=== PATIENT | male | born 1955 | race Caucasian/White ===

== ENCOUNTER 2017-12-20 08:56 | Outpatient (CLI) | payer BC ==
--- NOTE | 2017-12-20 09:34 | XRAY Report ---
Reason: BRONCHITIS,ACUTE W OR W/O BRONCHOSPASM Procedure Date: 12/20/2017 Accession Number: [id number] / [id number] Procedure: XR - Chest 2 View X-Ray CPT Code: 14161 FULL RESULT: EXAM: CHEST RADIOGRAPHY EXAM DATE: 12/20/2017 09:14 AM. CLINICAL HISTORY: Bronchitis, acute W OR W/O BRONCHOSPASM. COMPARISON: None. TECHNIQUE: 2 views. FINDINGS: Lungs/Pleura: No focal opacities evident. No pleural effusion. No pneumothorax. Normal volumes. Mediastinum: Heart and mediastinal contours are unremarkable. Upper abdominal clips are noted. IMPRESSION: No evidence of acute thoracic process RADIA
== END 2017-12-20 08:57 | disposition home or self-care (01) ==
LOC: DI 08:56
PROVIDERS: ATTEND Registered Nurse
DX: J20.9 Acute bronchitis, unspecified (principal)
CPT/HCPCS: 71046

== ENCOUNTER 2021-11-11 08:00 | Outpatient (CLI) | payer BC, MEDICARE | END 2021-11-11 23:59 | disposition home or self-care (01) | LOC: LAB.S 08:00 | PROVIDERS: ATTEND Physician Assistant Medical | DX: M70.52 Other bursitis of knee, left knee (principal) | CPT/HCPCS: 87070; 87205 ==

== ENCOUNTER 2022-02-15 13:56 | Outpatient (CLI) | payer MEDICARE ==
--- NOTE | 2022-02-15 22:33 | XRAY Report ---
PROCEDURE: Knee 4 View LT INDICATIONS: LEFT KNEE PAIN TECHNIQUE: 4 views of the left knee(s) were acquired. COMPARISON: None. FINDINGS: Mild femorotibial and patellofemoral joint space narrowing with small marginal osteophytes. No suspic ious lytic or blastic osseous lesion. No knee joint effusion. Normal patellar height and position. Re gional soft tissues are normal. IMPRESSION: Mild tricompartmental osteoarthritis. Reviewed by: Jayden Samuel MD on 02/15/2022 10:32 PM PST Approved by: Jayden Samuel MD on 02/15/2022 10:32 PM PST Station ID: [id number]
== END 2022-02-15 13:57 | disposition home or self-care (01) ==
LOC: DI.WOS 13:56
PROVIDERS: ATTEND Physician Assistant Surgical
DX: M17.12 Unilateral primary osteoarthritis, left knee (principal)

== ENCOUNTER 2022-03-09 08:45 | Outpatient (CLI) | payer MEDICARE ==
[2022-03-09 09:05] LABS: BASOPHILS % (AUTO) 0.7 %; EOSINOPHILS # (AUTO) 0.2 10^3/uL (0.0-0.7); EOSINOPHILS % (AUTO) 3.5 %; HCT - HEMATOCRIT 45.6 % (42.0-52.0); HGB - HEMOGLOBIN 14.9 g/dL (14.0-18.0); LYMPHOCYTES % (AUTO) 17.1 %; MEAN CORPUSCULAR HEMOGLOBIN 31.1 pg (27.0-31.0); MEAN CORPUSCULAR HGB CONC 32.7 g/dL (32.0-36.0); MEAN CORPUSCULAR VOLUME 95.2 fL (80.0-94.0); MEAN PLATELET VOLUME 9.9 fL (7.4-11.4); MONOCYTES # (AUTO) 0.3 10^3/uL (0.0-1.0); MONOCYTES % (AUTO) 4.9 %; NEUTROPHILS # (AUTO) 4.4 10^3/uL (1.5-6.6); NEUTROPHILS % (AUTO) 73.5 %; PLT - PLATELET COUNT 164 10^3/uL (130-450); RED BLOOD COUNT 4.79 10^6/uL (4.70-6.10); RED CELL DISTRIBUTION WIDTH 12.8 % (12.0-15.0); WHITE BLOOD COUNT 5.9 x10^3/uL (4.8-10.8)
== END 2022-03-09 08:46 | disposition home or self-care (01) ==
LOC: LAB 08:45
PROVIDERS: ATTEND Physician Assistant Surgical
DX: M70.50 Other bursitis of knee, unspecified knee (principal)
CPT/HCPCS: 36415; 85025

== ENCOUNTER 2022-06-02 07:50 | Outpatient (CLI) | payer MEDICARE ==
[~2022-06-02 07:50] MED LIST: GADOBUTROL 10 MMOL/10 ML VIAL ONE
[2022-06-02 08:23] LABS: CREATININE 0.9 mg/dL (0.6-1.2)
[2022-06-02] MEDS ORDERED: GADOBUTROL 10 MMOL/10 ML VIAL IVP ONE (10:16)
--- NOTE | 2022-06-02 13:59 | MRI Report ---
PROCEDURE: KNEE W/WO - LT INDICATIONS: TIBIAL MASS, CELLULITIS OF LEFT KNEE CONTRAST: GADAVIST 9.8 TECHNIQUE: Noncontrast sagittal PD fast spin echo and T2 fast spin echo with fat saturation, sagittal 3-D spoile d GE with fat saturation; coronal T1 spin echo and PD fast spin echo with fat saturation, and axial T 1 spin echo and PD fast spin echo with fat saturation through the knee. Post-contrast axial, coronal , and sagittal T1 spin echo with fat saturation through the knee. COMPARISON: None. FINDINGS: Image quality: Excellent. Menisci: Peripheral displacement of medial meniscus is seen with complex oblique tear involving body and posterior horn of medial meniscus extending to both superior and inferior articulating surfaces. The lateral meniscus is intact. The meniscal root ligaments appear intact. Cruciate ligaments: The anterior and posterior cruciate ligaments appear intact. Medial structures: The medial collateral ligament appears mildly thickened. The posterior oblique l igament, semimembranosus tendon insertions, and oblique popliteal ligament, and meniscocapsular junct ion appear intact. Visualized portions of the pes anserinus tendons appear normal. No abnormal burs al fluid. Lateral structures: The lateral collateral ligament, long and short heads of the biceps femoris tend on appear intact. The popliteus tendon appears normal; the popliteofibular ligament appears intact. Iliotibial band appears normal. Anterior structures: Lobulated and fairly homogeneously T2 hyperintense and T1 hypointense structure is seen in soft tissue along anterior aspect of mid to distal patellar tendon and measures up to 3.5 x 1.9 x 4.1 cm in size. After IV contrast infusion, and no enhancement is noted within this structur e. The quadriceps and patellar tendons appear intact. Patellar alignment is normal. No femoral troc hlear dysplasia or ventral trochlear prominence. No edema in the infrapatellar fat pad. Bones and cartilage: No suspicious osseous enhancement. No bone marrow contusions or fractures. Mil d to moderate tricompartment osteoarthritis and chondromalacia is seen most notably in medial femoral tibial compartment and lateral portion of patella femoral compartment. Joint space: There is small to moderate knee joint fluid. No Valencia's cyst. Normal appearing synovi al plicae are incidentally noted. No suspicious soft tissue enhancement. IMPRESSION: 1. 3.5 x 1.9 x 4.1 cm lobulated cystic structure in anterior left knee soft tissue anterior to the mi d to distal patellar tendon and tibial tuberosity likely represent a ganglion cyst. No contrast enhan cement is noted within this structure. No enhancing soft tissue mass is seen. 2. Suggestion of complex tear involving body and posterior horn of medial meniscus extending to both superior and inferior articulating surfaces. Lateral meniscus is intact. 3. Distal quadriceps tendon and patella tendon are intact. 4. The cruciate ligaments are intact. Low-grade MCL sprain. 5. Mild to moderate tricompartmental osteoarthritis and chondromalacia as above. No fracture or dislo cation. Small to moderate joint effusion, no gross loose bodies. Reviewed by: Amandeep Villafuerte MD on 06/02/2022 1:57 PM PDT Approved by: Amandeep Villafuerte MD on 06/02/2022 1:57 PM PDT Station ID: [id number]
== END 2022-06-02 07:51 | disposition home or self-care (01) ==
LOC: LAB 07:50
PROVIDERS: ATTEND Registered Nurse
DX: M70.52 Other bursitis of knee, left knee (principal); L03.116 Cellulitis of left lower limb; S83.412A Sprain of medial collateral ligament of left knee, initial encounter; M17.12 Unilateral primary osteoarthritis, left knee; M25.462 Effusion, left knee
CPT/HCPCS: 36415; 73723; 82565; A9585

== ENCOUNTER 2023-05-04 10:33 | Day surgery (SDC) | payer MEDICARE ==
[2023-05-04] MEDS: LACTATED RINGERS 1,000 ML IV ONE ×2 (10:55→15:01)
[2023-05-04] MEDS ORDERED: PROPOFOL 200 MG/20 ML VIAL IVP ONE (10:57)
[2023-05-04] MEDS ORDERED: fentaNYL 100 MCG/2 ML VIAL ONE ×3 (10:57→14:02)
[2023-05-04] MEDS ORDERED: MIDAZOLAM 2 MG/2 ML VIAL ONE (10:58)
[2023-05-04] MEDS ORDERED: ceFAZolin 2 GM VIAL ONE (11:28)
--- NOTE | 2023-05-04 11:41 | ANESTHESIA ---
Pre-Anesthesia VS, & Labs - Diagnosis LEFT INGUINAL HERNIA - Procedure LIH REPAIR, OPEN Vital Signs: Temp Pulse Resp BP Pulse Ox O2 Flow Rate 36.1 C L 70 18 158/92 H 97 05/04/23 10:55 05/04/23 10:55 05/04/23 10:55 05/04/23 10:55 05/04/23 10:55 Height: 6 ft 1 in Weight (kg): 97 kg Body Mass Index: 28.2 BMI Classification: Overweight - NPO >8 hours Home Medications and Allergies Home Medications: Ambulatory Orders Amitriptyline [Elavil] 10 mg PO HS 04/27/23 Gabapentin [Neurontin] 300 mg PO TID 04/27/23 Amitriptyline [Elavil] 10 mg PO HS 04/27/23 Gabapentin [Neurontin] 300 mg PO TID 04/27/23 Allergies/Adverse Reactions: Allergies Allergy/AdvReac Type Severity Reaction Status Date / Time codeine Allergy Intermediate Itching Verified 04/27/23 14:14 Anes History & Medical History - Anesthetic History Anesthesia Complications: reports: No previous complications Family history of Anesthesia Complications: Denies Family history of Malignant Hyperthermia: Denies - Medical History Cardiovascular: reports: None (DENIES, [place], CP, SOB) Pulmonary: reports: None Gastrointestinal: reports: None Urinary: reports: None Neuro: reports: None Musculoskeletal: reports: None Endocrine/Autoimmune: reports: None Skin: reports: None Smoking Status: Former smoker Psychosocial: reports: No issues indicated - Surgical History General: reports: Cholecystectomy, Colonoscopy Eyes Ears Nose Throat (EENT): reports: Tonsil/Adenoidectomy Results - EKG Results EKG Comparison: Reviewed EKG Exam General: Alert Dental: WNL Mouth Openin Fingerbreadth Neck Mobility: Normal Mallampati classification: II Plan Anesthesia Type: General Consent for Procedure(s) Verified and Reviewed: Yes Code Status: Attempt Resuscitation ASA classification: 2-Mild systemic disease Is this case an emergency?: No
[2023-05-04] MEDS ORDERED: NALOXONE 0.4 MG/ML VIAL IVP PRN (11:43)
[2023-05-04] MEDS ORDERED: ATROPINE ABBOJECT 1 MG/10 ML SYRINGE IVP PRN (11:43)
[2023-05-04] MEDS ORDERED: ONDANSETRON 4 MG/2 ML VIAL IVP PRN (11:43)
[2023-05-04] MEDS ORDERED: MORPHINE 2 MG/ML CARPUJECT IVP PRN (11:43)
[2023-05-04] MEDS ORDERED: HYDROmorphone 0.5 MG/0.5 ML SYRINGE IVP PRN ×2 (11:43→15:07)
[2023-05-04] MEDS ORDERED: fentaNYL 100 MCG/2 ML VIAL IVP PRN (11:43)
[2023-05-04] MEDS ORDERED: METOCLOPRAMIDE 10 MG/2 ML VIAL IVP PRN (11:43)
[2023-05-04] MEDS ORDERED: ePHEDrine 50 MG/ML VIAL IVP PRN (11:43)
[2023-05-04] MEDS ORDERED: LACTATED RINGERS 1,000 ML IV SCH (12:00)
--- NOTE | 2023-05-04 12:05 | HISTORY & PHYSICAL EXAMINATION ---
Chief Complaint - Chief Complaint Chief Complaint: left inguinal hernia and right groin skin lesion History of Present Illness - History Obtained From Records Reviewed: yes History obtained from: pt Exam Limitations: none - History of Present Illness HPI Comment/Other: large painful left inguinal hernia and chronic skin lesion right groin History - Past Medical History Cardiovascular: reports: None (DENIES, [place], CP, SOB) Respiratory: reports: None Neuro: reports: None Endocrine/Autoimmune: reports: None GI: reports: None [employer]: reports: None : reports: None Musculoskeletal: reports: None Derm: reports: None MRSA Hx?: No - Past Surgical History General: reports: Cholecystectomy, Colonoscopy HEENT: reports: Tonsil/Adenoidectomy Meds/Allgy - Home Medications Home Medications: Ambulatory Orders Medication Instructions Recorded Confirmed Amitriptyline [Elavil] 10 mg PO HS 04/27/23 04/27/23 Gabapentin [Neurontin] 300 mg PO TID 04/27/23 04/27/23 - Allergies Allergies/Adverse Reactions: Allergies Allergy/AdvReac Type Severity Reaction Status Date / Time codeine Allergy Intermediate Itching Verified 04/27/23 14:14 Review of Systems - Other Findings Other Findings: 10 pt ros as above otherwise unremarkable Exam - Vital Signs Vital Signs: Vital Signs x48h Temp Pulse Resp BP Pulse Ox 05/04/23 10:55 36.1 C L 70 18 158/92 H 97 - Physical Exam General Appearance: positive: No acute distress, Alert Eyes Bilateral: positive: PERRL, EOMI ENT: positive: No signs of dehydration Neck: positive: No JVD, Trachea midline Respiratory: positive: No respiratory distress Cardiovascular: positive: Regular rate & rhythm Abdomen: positive: Non-tender, No distention, Other (left inguinal hernia and right groin skin lesion) Conclusion/Plan - Problem List (1) Inguinal hernia of left side without obstruction or gangrene Conclusion/Plan: large hernia. plan open repair with mesh plan excision right groin skin lesion. parq held and consent obtained
[2023-05-04] MEDS ORDERED: BUPIVACAINE 0.25% PF 30 ML VIAL ONE (12:19)
[2023-05-04] MEDS ORDERED: ONDANSETRON 4 MG/2 ML VIAL ONE (13:06)
[2023-05-04] MEDS ORDERED: DEXAMETHASONE 4 MG/ML VIAL ONE (13:06)
[2023-05-04] MEDS: BUPIVACAINE 0.25% PF 30 ML VIAL SUBQ ONE (13:23)
[2023-05-04] MEDS ORDERED: KETAMINE 200 MG/20 ML VIAL ONE (13:50)
[2023-05-04] MEDS ORDERED: ACETAMINOPHEN 1,000 MG/100 ML 1,000 MG/100 ML BAG IV ONE (13:53)
[2023-05-04] MEDS ORDERED: HYDROcod/ACETAM 5/325 MG TABLET PO PRN (15:07)
--- NOTE | 2023-05-04 15:13 | OPERATIVE REPORT ---
Operative Report - General Procedure Date: 05/04/23 Planned Procedure: open left inguinal hernia repair and excision right groin skin lesion Pre-Op Diagnosis: large left inguinal hernia and 1.5 cm right groin skin lesion Procedure Performed: open repair large direct inguinal hernia and excision 2.5 cm right groin skin lesion with 3 cm intermediate repair Post Op Diagnosis: same - Procedure Note Primary Surgeon: ting nunez Anesthesia Technique: General LMA, Local Pathology: skin lesion right groin Urine Output (mL): 2 Drain/Tube Type: Other (none) Indications: painful large hernia and bleeding skin lesion Findings: as above. benign appearing skin lesion. very large direct defect cepalad of the internal ring Complications: none - Other Other Information/Narrative: Patient was properly identified brought to the operating room and placed in supine position. Sequential compression devices were placed. General endotracheal anesthesia was induced. He was prepped and draped in a sterile fashion and given preoperative antibiotics. Local anesthetic was given throughout the procedure. A 5 cm incision was made in the direction of Dontae's lines just cephalad of the pubic tubercle. Dissection proceeded with cutting current cautery. The superficial epigastric vein was identified clamped divided and tied with 3-0 Vicryl. Dissection proceeded down to the aponeurosis. The aponeurosis was opened in the direction of its fibers and extended to the external ring. Cord structures were mobilized and brought up. The nerves were carefully protected and preserved. Cord structures were mobilized and brought up. A large direct hernia was identified. The direct bulge was mobilized away from surrounding structures. It was reduced and floor repaired with a 2-0 silk pursestring suture. There was no indirect inguinal hernia. Preperitoneal fat was removed. The base was tied with 2 O vicryl. Polypropylene mesh was cut to size and with tails. The mesh was secured with multiple interrupted 0 Ethibond sutures. Sutures were placed along the pubic tubercle, Ayan's ligament area and along the shelving border of Poupart's ligament. Sutures were placed medially along the abdominal wall musculature and internal oblique. The medial tail of the mesh was secured to the shelving border of Poupart's ligament with 3 interrupted 0 ethibond sutures. An additional suture was placed in the crotch of the mesh recreating an internal ring of appropriate size. Aponeurosis was closed with a running 2-0 Vicryl suture. The opposite was closed with interrupted 3-0 Vicryl suture. Buried interrupted subdermal 3-0 Vicryl sutures were then placed. And was closed with a running 4-0 Monocryl subcuticular suture. Dressing was applied. The right groin skin lesion was then addressed. The skin lesion measured approximately 1.5 cm up. 2 cm elliptical incision was made around the skin lesion. It was removed in its entirety with a thin margin of normal tissue. It was sent for pathology. Hemostasis was assured with cautery buried interrupted subdermal 3-0 Vicryl sutures were placed followed by a few buried interrupted subdermal 4-0 Monocryl's. Dressing was applied. Patient was awakened and brought to recovery in good condition.
[2023-05-04 16:21] VITALS: BP 140/92; O2SAT 96
== END 2023-05-04 10:34 | disposition home or self-care (01) ==
LOC: SDS 10:33
PROVIDERS: ATTEND Surgery
PROC: 0YU60JZ Supplement Left Inguinal Region with Synthetic Substitute, Open Approach (ICD-10-PCS; principal; 2023-05-04 12:30)
PROC: 0HBAXZZ Excision of Inguinal Skin, External Approach (ICD-10-PCS; 2023-05-04 12:30)
DX: K40.90 Unilateral inguinal hernia, without obstruction or gangrene, not specified as recurrent (principal); L82.0 Inflamed seborrheic keratosis; Z87.891 Personal history of nicotine dependence; R06.2 Wheezing
CPT/HCPCS: 11403; 12032; 49505; C1781; J0131; J3490; J7120